=== PATIENT | female | born 1990 | race Caucasian/White ===

== ENCOUNTER 2020-09-20 07:25 | Inpatient (IN) | payer MEDICAID, SELFPAY ==
[~2020-09-20] VITALS: Ht 152.4 cm; Wt 90.7 kg
[2020-09-20] MEDS ORDERED: TERBUTALINE SULFATE 1 MG/ML VIAL SUBCUT ONE (09:00)
[2020-09-20] MEDS ORDERED: LR 1,000 ML IV ONE (09:00)
[2020-09-20] MEDS ORDERED: NALBUPHINE HCL 10 MG/ML AMP IVP PRN ×2 (09:00→18:45)
[2020-09-20] MEDS ORDERED: DINOPROSTONE 10 MG SUPP VG ONE (09:00)
[2020-09-20 09:16] LABS: BASOPHILS % (AUTO) 0.5 % (0.0-2.0); EOSINOPHILS # (AUTO) 0.1 K/uL (0.0-0.4); EOSINOPHILS % (AUTO) 0.6 % (0.0-4.0); HEMATOCRIT 31.2 % (36-48); HEMOGLOBIN 9.9 g/dL (12.0-16.0); LYMPHOCYTES % (AUTO) 20.9 % (20.5-51.5); MEAN CORPUSCULAR HEMOGLOBIN 24 pg (27-31); MEAN CORPUSCULAR HGB CONC 32 % (32-36); MEAN CORPUSCULAR VOLUME 75 fL (79.0-98.0); MONOCYTES # (AUTO) 0.8 K/uL (0.0-1.0); MONOCYTES % (AUTO) 7.9 % (1.7-9.3); NEUTROPHILS # (AUTO) 6.8 K/uL (1.8-7.7); NEUTROPHILS % (AUTO) 70.1 % (40.0-70.0); PLATELET COUNT (AUTO) 255 K/uL (130-430); RED BLOOD CELL COUNT(AUTO) 4.16 MIL/uL (4.2-6.2); RED CELL DISTRIBUTION WIDTH 16.4 % (9.0-15.0); WHITE BLOOD COUNT (AUTO) 9.7 K/uL (4.8-10.8)
[2020-09-20] MEDS ORDERED: OXYTOCIN/0.9 % SODIUM CHLORIDE 1,000 ML IV SCH (09:45)
[2020-09-20] MEDS: LR 1,000 ML IV SCH ×2 (10:29→16:03)
[2020-09-20 11:46] VITALS: BP_SYST 139
[2020-09-20] MEDS ORDERED: BUPIVACAINE /PF 0.75% 10 ML VIAL INJ ONE (18:15)
[2020-09-20] MEDS ORDERED: ePHEDrine sulfate 50 MG/ML VIAL IM ONE (18:15)
[2020-09-20] MEDS ORDERED: NS IRRIG SOLN 1000 ML IR ONE (18:15)
[2020-09-20] MEDS ORDERED: MORPHINE SULFATE 10MG/10ML PF AMP EP ONE (18:15)
[2020-09-20] MEDS ORDERED: ONDANSETRON HCL 4 MG/2 ML VIAL IVP ONE (18:15)
[2020-09-20] MEDS ORDERED: LR 1,000 ML IV.SOLN IV ONE (18:15)
[2020-09-20] MEDS ORDERED: HYDROmorphone 2 MG/ML VIAL IVP PRN (18:30)
[2020-09-20] MEDS ORDERED: LR 1,000 ML IV SCH (18:30)
[2020-09-20] MEDS ORDERED: OXYTOCIN/0.9 % SODIUM CHLORIDE 1,000 ML IV ONE (18:30)
[2020-09-20] MEDS ORDERED: KETOROLAC TROMETHAMINE 30 MG VIAL IVP PRN (18:30)
[2020-09-20] MEDS ORDERED: BISACODYL 10 MG/SUPPOSITORY RC PRN (18:30)
[2020-09-20] MEDS ORDERED: ANUSOL 1 EA SUPP.RECT (PREPARATION H) RC PRN (18:30)
[2020-09-20] MEDS ORDERED: LANOLIN 7 GM OINT. TP PRN (18:30)
[2020-09-20] MEDS ORDERED: CEFAZOLIN 2 GM IVPB PREMIX 50 ML IV ONE (18:38)
[2020-09-20] MEDS ORDERED: fentaNYL CITRATE/PF 100 MCG/2 ML AMP IVP PRN ×2 (18:45)
[2020-09-20] MEDS ORDERED: KETOROLAC TROMETHAMINE 60 MG/2 ML VIAL IM PRN (18:45)
[2020-09-20] MEDS ORDERED: ONDANSETRON HCL 4 MG/2 ML VIAL IVP PRN ×2 (18:45)
[2020-09-20] MEDS ORDERED: METOCLOPRAMIDE HCL 10 MG/2 ML VIAL IVP PRN (18:45)
[2020-09-20] MEDS ORDERED: DIPHENHYDRAMINE INJ 50 MG/ML VIAL IVP PRN (18:45)
[2020-09-20] MEDS ORDERED: MORPHINE SULFATE 10MG/10ML PF AMP SP SCH (18:45)
[2020-09-20] MEDS ORDERED: NALOXONE HCL 0.4 MG/ML AMP (NARCAN) IVP PRN ×2 (18:45)
[2020-09-20] MEDS ORDERED: DIPHENHYDRAMINE INJ 50 MG/ML VIAL ONE (20:01)
[2020-09-20] MEDS ORDERED: TEMAZEPAM 15 MG CAPSULE PO PRN (21:00)
[2020-09-21 08:01] LABS: BASOPHILS % (AUTO) 0.3 % (0.0-2.0); EOSINOPHILS % (AUTO) 0.3 % (0.0-4.0); HEMATOCRIT 26.7 % (36-48); HEMOGLOBIN 8.5 g/dL (12.0-16.0); LYMPHOCYTES # (AUTO) 1.5 K/uL (1.0-5.5); LYMPHOCYTES % (AUTO) 15.8 % (20.5-51.5); MEAN CORPUSCULAR HEMOGLOBIN 24 pg (27-31); MEAN CORPUSCULAR HGB CONC 32 % (32-36); MEAN CORPUSCULAR VOLUME 75 fL (79.0-98.0); MONOCYTES # (AUTO) 0.8 K/uL (0.0-1.0); MONOCYTES % (AUTO) 8.1 % (1.7-9.3); NEUTROPHILS # (AUTO) 7.4 K/uL (1.8-7.7); NEUTROPHILS % (AUTO) 75.5 % (40.0-70.0); PLATELET COUNT (AUTO) 212 K/uL (130-430); RED BLOOD CELL COUNT(AUTO) 3.56 MIL/uL (4.2-6.2); RED CELL DISTRIBUTION WIDTH 16.5 % (9.0-15.0); WHITE BLOOD COUNT (AUTO) 9.8 K/uL (4.8-10.8)
[2020-09-21] MEDS: DOCUSATE SODIUM 100 MG CAPSULE PO SCH ×2 (08:27→21:07)
[2020-09-21] MEDS: SIMETHICONE 80 MG TAB.CHEW PO PRN ×3 (08:27→21:09)
[2020-09-21] MEDS ORDERED: ACETAMINOPHEN 325 MG TABLET PO PRN (11:45)
[2020-09-21] MEDS: OXYCODONE/ACETAMINOPHEN 5-325 TABLET PO PRN ×3 (12:03→21:08)
[2020-09-22] MEDS: OXYCODONE/ACETAMINOPHEN 5-325 TABLET PO PRN ×3 (00:36→17:49)
[2020-09-22 05:05] VITALS: BP_SYST 110
[2020-09-22] MEDS ORDERED: TERBUTALINE SULFATE 1 MG/ML VIAL SUBCUT ONE (07:14)
[2020-09-22] MEDS: SIMETHICONE 80 MG TAB.CHEW PO PRN ×3 (15:23→19:57)
[2020-09-22] MEDS: IBUPROFEN 800 MG TABLET PO PRN ×2 (15:24→17:50)
[2020-09-22] MEDS: DOCUSATE SODIUM 100 MG CAPSULE PO SCH (19:57)
[2020-09-23] MEDS: DOCUSATE SODIUM 100 MG CAPSULE PO SCH (09:50)
[2020-09-23] MEDS: SIMETHICONE 80 MG TAB.CHEW PO PRN (09:50)
== END 2020-09-23 16:50 | disposition home or self-care (01) | DRG 540 ==
LOC: SPU 07:25
PROVIDERS: ADMIT Obstetrics & Gynecology; ATTEND Obstetrics & Gynecology
PROC: 10D00Z1 Extraction of Products of Conception, Low, Open Approach (ICD-10-PCS; principal; 2020-09-20 17:45)
DX: O76 Abnormality in fetal heart rate and rhythm complicating labor and delivery (principal); Z20.822 Contact with and (suspected) exposure to COVID-19; Z37.0 Single live birth; Z3A.40 40 weeks gestation of pregnancy
CPT/HCPCS: 36415; 85025; 86592; 86886; 86900; 86901; J0690; J1200; J1885; J2274; J2405; J2590; J3105; J3490; J7120